=== PATIENT | female | born 1975 | race Two or more races ===

== ENCOUNTER 2019-05-19 16:34 | Emergency (ER) | payer MEDICAID ==
[~2019-05-19] VITALS: Ht 162.6 cm; Wt 70.0 kg
[2019-05-19] MEDS ORDERED: QUET25TA PO (16:47)
[2019-05-19] MEDS ORDERED: SODIUM CHLORIDE 0.9% 1,000 ML IV ONE (18:11)
[2019-05-19] MEDS ORDERED: LORAZEPAM 2MG/ML CPJ IV ONE (18:15)
[2019-05-19] MEDS ORDERED: DIPHENHYDRAMINE 50MG/ML VIAL IV ONE (18:30)
[2019-05-19 18:42] LABS: BASOPHILS % 0.5 % (0.0-2.0); EOSINOPHILS % 0.9 % (0.0-5.0); HEMATOCRIT. 36.4 % (36.0-48.0); HEMOGLOBIN. 12.4 g/dL (12.0-16.0); LYMPHOCYTES % 21.2 % (20.0-50.0); MEAN CORPUSCULAR VOLUME 91.4 fL (81.0-99.0); MEAN PLATELET VOLUME 8.6 fl (7.4-10.4); MONOCYTES % 7.3 % (2.0-8.0); NEUTROPHILS % 70.1 % (40.0-76.0); PLATELET 230 x1000/uL (130-400); RED BLOOD CELL COUNT 3.99 mill/uL (4.2-5.4); RED CELL DISTRIBUTION WIDTH 13.6 % (11.6-14.6)
[2019-05-19 18:46] LABS: CHLORIDE 108 mEq/L (98-107)
[2019-05-19 18:50] LABS: HCG SCREEN NEGATIVE
[2019-05-19 18:51] LABS: ETHANOL BLOOD < 10 mg/dL
[2019-05-19 19:32] LABS: *AMPHETAMINES SCREEN URINE NEGATIVE (NEGATIVE)
[2019-05-19 19:33] LABS: *BARBITURATES SCREEN URINE NEGATIVE (NEGATIVE); *BENZODIAZEPINES SCREEN URINE NEGATIVE (NEGATIVE); *COCAINE SCREEN URINE NEGATIVE (NEGATIVE); CANNABINOID URINE SCREEN NEGATIVE (NEGATIVE); METHADONE URINE SCREEN NEGATIVE (NEGATIVE); OPIATES URINE SCREEN NEGATIVE (NEGATIVE); PHENCYCLIDINE URINE SCREEN NEGATIVE (NEGATIVE)
[2019-05-19 20:54] VITALS: BP 124/85
== END 2019-05-19 23:34 | disposition home or self-care (01) ==
LOC: ER 16:34
DX: R51 Headache (principal); T43.595A Adverse effect of other antipsychotics and neuroleptics, initial encounter; Y92.9 Unspecified place or not applicable; F20.9 Schizophrenia, unspecified; Z88.6 Allergy status to analgesic agent
CPT/HCPCS: 36415; 70450; 71045; 80053; 80305; 80320; 83690; 84484; 84703; 85025; 93005; 96374; 96375; 99284; J1200; J2060; J7030; G0480